=== PATIENT | female | born 1980 | race Caucasian/White ===

== ENCOUNTER 2017-11-30 15:08 | Emergency (ER) | payer MEDICAID ==
[2017-11-30] MEDS ORDERED: Sodium Chloride 0.9% 1,000 ML IV STA (16:17)
--- NOTE | 2017-11-30 16:38 | C.PDOC ---
History Of Present Illness 37 y/o female with PMHx of HTN and diabetes insipidus presents to the ED with complaints of suprapubic cramping that radiates to the back for 2 weeks. LMP was in October. Of note, patient admits she had spotting for a few days last month , which was medical review specialist than her usual period. She denies any fever, nausea, vomiting, diarrhea, vaginal bleeding, or discharge. Time Seen by Provider: 11/30/17 15:56 Chief Complaint (Nursing): Abdominal Pain History Per: Patient History/Exam Limitations: no limitations Onset/Duration Of Symptoms: Days Current Symptoms Are (Timing): Still Present Location Of Pain/Discomfort: Suprapubic Quality Of Discomfort: Cramping Past Medical History Reviewed: Historical Data, Nursing Documentation, Vital Signs Vital Signs: Last Vital Signs Temp 98.8 F 11/30/17 20:21 Pulse 66 11/30/17 20:21 Resp 18 11/30/17 20:21 BP 163/98 H 11/30/17 20:21 Pulse Ox 99 11/30/17 20:32 - Medical History PMH: HTN, Hyperlipidemia Other PMH: Diabetes insipidus - [facility] Procedures LOW CERVICAL (10/09/13) Family History: States: Unknown Family Hx - Social History Hx Alcohol Use: No Hx Substance Use: No - Immunization History Hx Tetanus Toxoid Vaccination: No Hx Influenza Vaccination: No Hx Pneumococcal Vaccination: No Review Of Systems Except As Marked, All Systems Reviewed And Found Negative. Constitutional: Negative for: Fever, Chills Gastrointestinal: Positive for: Abdominal Pain (suprapubic pain). Negative for : Nausea, Vomiting, Diarrhea Genitourinary: Negative for: Vaginal Discharge, Vaginal Bleeding Physical Exam - Physical Exam Appears: Non-toxic, No Acute Distress Skin: Normal Color, Warm Head: Atraumatic, Normacephalic Eye(s): bilateral: Normal Inspection Oral Mucosa: Moist Neck: Normal ROM, Supple Chest: Symmetrical Cardiovascular: Rhythm Regular, No Murmur Respiratory: Normal Breath Sounds, No Accessory Muscle Use Gastrointestinal/Abdominal: Soft, Tenderness (mild tenderness to suprapubic area ), No Guarding, No Rebound Back: Normal Inspection, No CVA Tenderness, No Vertebral Tenderness Extremity: Bilateral: Atraumatic, Normal Color And Temperature, Normal ROM Neurological/Psych: Oriented x3, Normal Speech, Normal Cranial Nerves ED Course And Treatment - Laboratory Results Result Diagrams: 11/30/17 16:39 11/30/17 16:39 Urine POC: Positive O2 Sat by Pulse Oximetry: 99 (RA) Pulse Ox Interpretation: Normal - CT Scan/US OB US Other Rad Studies (CT/US): Read By Radiologist, Radiology Report Reviewed CT/US Interpretation: Name: MUNIR MRORIS Age: 37Years F Date: 11/30/2017. Requesting Physician: Vaishnavi Del Castillo PA-C : 1980. [facility] Procedure Ordered As Accession. Number. of. Images. US TRANSVAGINAL. PREG 1ST. TRIMESTER/OB. TV. [id number]. J. 61. US TRANSABD FIRST TRIMESTER. FIRST GEST. PREG 1ST. TRIMESTER/OB. TV. [id number]. J. 0. US DUPLEX ART/BROCK ABD/PEL/SCROTUM &/OR. RETROPERIT ORG COMPLETE. PREG 1ST. TRIMESTER/OB. TV. [id number]. J. 0. Provided Clinical History: pelvic pain, spotting, . EXAM: US First Trimester, Transabdominal. US , Transvaginal. CLINICAL HISTORY: 37 years old, female; Pain; complicated by abdominal or pelvic pain; Lower; First. trimester; Gestational age or lmp: [id number]; ; Additional info: Pelvic pain, spotting, . TECHNIQUE: Real-time transabdominal and transvaginal obstetrical ultrasound of the maternal pelvis and a first. trimester with image documentation. Transvaginal imaging was used for better evaluation. of the fetus and adnexa. COMPARISON: No relevant prior studies available. FINDINGS: Gestation: Gestational sac. Yolk sac. No pole. Mean sac diameter of 1.0 cm, correlating with. gestational age of 5 weeks 0 days. Uterus/cervix: No subchorionic hemorrhage. Closed cervix. Probable nabothian cyst. Ovaries: RIGHT ovary: Normal. LEFT ovary: Probable 2.5 x 1.6 x 1.9 cm corpus luteal cyst. No. adnexal masses. Free fluid: Trace free fluid within pelvis. IMPRESSION: 1. Intrauterine , of uncertain viability. Recommend followup. 2. Incidental/non-acute findings are described above. Thank you for allowing us to participate in the care of your patient. Dictated and Authenticated by: Cam Franklin MD. 11/30/2017 7:18 PM Eastern Time ([place] & [place]) Progress Note: Urine POC is positive. Blood work and urine sent, including HCG quant and type/screen. OB/ ultrasound ordered. Patient started on IV fluids. Ultrasound obtained, and shows intrauterine of uncertain viability. Informed patient of results, copy of report provided. - Physician Consult Information Time Consulting Physician Contacted: 20:19 Physician Contacted: Lola West Outcome Of Conversation: Spoke with Dr. West, on-call OBGYN, discussed ultrasound findings and patients uncontrolled HTN. Dr. West suggests starting patient on 200 mg Labetalol BID with follow up with PMD in 1-2 days. First dose given in the ED. Disposition Counseled Patient/Family Regarding: Studies Performed, Diagnosis, Need For Followup, Rx Given - Disposition Referrals: Lars Rodriguez MD [Medical Doctor] - Disposition: HOME/ ROUTINE Disposition Time: 20:22 Condition: STABLE Additional Instructions: Follow up with your PMD and OBGYN within 1-2 days. Return to ED if feel worse. Return to ED in 3 days to repeat your beta HCG and Pelvic US. Stop taking your blood pressure medications, they are not safe with . Start taking Labetalol 200 mg twice aday. Please follow up with your PMD within 1-2 days to adjust/change your blood pressure medication doses as needed to keep your BP under control. Prescriptions: Vit Calc,Iron,Folic [ Vitamins] 1 each PO DAILY #30 tablet Labetalol [Trandate] 200 mg PO BID #60 tab Ondansetron ODT [Zofran ODT] 4 mg PO .Q4-6H PRN #20 odt PRN Reason: Nausea/Vomiting Instructions: Morning Sickness (DC), High Blood Pressure and Forms: [employer] (Ukrainian) - Clinical Impression Clinical Impression: Elevated BP, Pelvic pain affecting - PA / SECURITIES AND REAL ESTATE DIRECTOR / Resident Statement MD/DO has reviewed & agrees with the documentation as recorded. - Scribe Statement The provider has reviewed the documentation as recorded by the Scribe (Kika Marinelli) All medical record entries made by the Scribe were at my direction and personally dictated by me. I have reviewed the chart and agree that the record accurately reflects my personal performance of the history, physical exam, medical decision making, and the department course for this patient. I have also personally directed, reviewed, and agree with the discharge instructions and disposition.
[2017-11-30 16:47] LABS: BASO # 0.1 K/uL (0.0-0.2); BASO % 0.9 % (0.0-2.0); EOS # 0.1 K/uL (0.0-0.7); EOS % 0.8 % (0.0-4.0); HEMOGLOBIN 13.4 g/dL (11.0-16.0); LYMPH % 23.9 % (20.0-40.0); MEAN CELL VOLUME 85.1 fL (81.0-99.0); MEAN CORPUSCULAR HEMOGLOBIN 29.2 pg (27.0-31.0); MEAN CORPUSCULAR HGB CONC 34.3 g/dL (33.0-37.0); MEAN PLATELET VOLUME 9.1 fL (7.2-11.7); MONO # 0.6 K/uL (0.0-0.8); MONO % 5.1 % (0.0-10.0); NEUT # 8.7 K/uL (1.8-7.0); NEUT % 69.3 % (50.0-75.0); NRBC % 0.1 % (0.0-2.0); RBC 4.59 Mil/uL (3.80-5.20); WHITE BLOOD COUNT 12.5 K/uL (4.8-10.8)
[2017-11-30 16:51] LABS: HCG,QUALITATIVE URINE POSITIVE (NEGATIVE)
[2017-11-30 16:58] LABS: SQUAMOUS EPITHIAL 9 /hpf (0-5); URINE BACTERIA RARE (<OCC); URINE BILIRUBIN NEGATIVE (NEGATIVE); URINE BLOOD NEGATIVE (NEGATIVE); URINE CLARITY Hazy (Clear); URINE COLOR Yellow (YELLOW); URINE GLUCOSE (UA) NORMAL (Normal); URINE LEUKOCYTE ESTERASE NEG Leu/uL (Negative); URINE PROTEIN 2+ mg/dL (NEGATIVE); URINE UROBILINOGEN NORMAL mg/dL (0.2-1.0)
[2017-11-30 17:04] LABS: ALB/GLOB RATIO 1.3 (1.0-2.1); ALBUMIN 3.8 g/dL (3.5-5.0); ALT/SGPT 24 U/L (9-52); AST/SGOT 12 U/L (14-36); BLOOD UREA NITROGEN 7 mg/dL (7-17); CALCIUM 8.8 mg/dl (8.6-10.4); GFR AFRICAN-AMERICAN > 60; GFR NON-AFRICAN AMERICAN > 60
[2017-11-30 19:45] VITALS: O2SAT 99
[2017-11-30 20:22] VITALS: BP 163/98; PULSE 66; RESP 18; TEMP 98.8
--- NOTE | 2017-12-01 10:07 | US ---
Date of service: 11/30/2017 PROCEDURE: OB Pelvic Ultrasound HISTORY: pelvic pain, spotting, COMPARISON: None available. FINDINGS: UTERUS: Single intrauterine gestation. Gestational sac diameter measures 1.00 cm equivalent to 5 weeks and 0 day of gestational age. Yolk sac is visualized. pole is not identified on the current examination. age (Ultrasound estimated): 5 weeks and 0 day Date of delivery (Ultrasound estimated) : 08/02/2018 Lesly-gestational hemorrhage: None. Uterus measures 8.6 x 5.0 x 5.8 cm. No mass CERVIX: Long and closed. There is a complicated nabothian cyst in the cervix. RIGHT OVARY: Measures 2.7 x 2.2 x 3.0 cm. No mass. Normal flow. LEFT OVARY: Measures 4.3 x 2.1 x 3.3 cm. No mass. Normal flow. There is a 2.4 x 1.6 x 1.9 cm corpus luteum cyst. FREE FLUID: There is small amount of free fluid in the left adnexa. OTHER FINDINGS: None. IMPRESSION: Single intrauterine gestational sac with mean gestational age of 5 weeks and 0 day. Yolk sac is visualized. pole is not identified likely due early gestation. Estimated date of delivery by ultrasound is 08/02/2018. Clinical and imaging follow-up is advised to confirm viability. A preliminary report was provided by [employer].
== END 2017-11-30 20:39 | disposition home or self-care (01) ==
LOC: C.ER 15:08
DX: O26.891 Other specified pregnancy related conditions, first trimester (principal); R10.2 Pelvic and perineal pain; O16.1 Unspecified maternal hypertension, first trimester; Z3A.01 Less than 8 weeks gestation of pregnancy
CPT/HCPCS: 76805; 76817; 80053; 81001; 84702; 84703; 85025; 86850; 86900; 87086; 96360; 99285; J7030